=== PATIENT | female | born 1965 | race Caucasian/White ===

== ENCOUNTER 2017-05-07 15:21 | Emergency (ER) | payer OTHER ==
[~2017-05-07] VITALS: Ht 157.5 cm; Wt 81.6 kg
[~2017-05-07 15:21] MED LIST: ASPI81TA44 PO; HYDR453.4 TP; INSU100I17 SQ; LOPE1TAB4 PO; METF500T PO; ONDA8TAB12 PO
[2017-05-07 15:35] VITALS: BP 148/63
--- NOTE | 2017-05-07 18:06 | PHYS DOC ---
Past History Past Medical History: Arthritis, Depression, Diabetes, Fibromyalgia, Hepatitis Past Surgical History: Other Smoking: Cigarettes Alcohol Use: None Drug Use: Other Social History Narrative: FORMER DRUG USER Adult General Chief Complaint Chief Complaint: WOUND CHECK HPI HPI Patient is a 51 year old F who presents for dirty dressing over her PICC line. She states that she has been moving boxes in a dirty garage. She also has swelling in the left arm which is the same arm as the PICC line. She states this was caused by bumping her arm while moving. She has no recollection of specifics around this injury. She states that it appeared suddenly. She denies fever sweats chills or flulike symptoms. She denies any other associated symptoms Review of Systems Review of Systems Constitutional: Denies fever or chills [] Eyes: Denies change in visual acuity, redness, or eye pain [] HENT: Denies nasal congestion or sore throat [] Respiratory: Denies cough or shortness of breath [] Cardiovascular: No additional information not addressed in HPI [] GI: Denies abdominal pain, nausea, vomiting, bloody stools or diarrhea [] : Denies dysuria or hematuria [] Musculoskeletal: Denies back pain or joint pain [] Integument: Negative except history of present illness Neurologic: Denies headache, focal weakness or sensory changes [] Endocrine: Denies polyuria or polydipsia [] Family History Family History Noncontributory Current Medications Current Medications Medications reviewed Allergies Allergies Allergies Coded Allergies Type Severity Reaction Last Updated Verified Penicillins Allergy Intermediate 01/13/16 Yes codeine Allergy Intermediate 02/07/16 Yes amoxicillin Allergy Unknown 05/07/17 Yes Physical Exam Physical Exam Constitutional: Well developed, well nourished, no acute distress, non-toxic appearance. [] HENT: Normocephalic, atraumatic, bilateral external ears normal, oropharynx moist, no oral exudates, nose normal. [] Eyes: PERRLA, EOMI, conjunctiva normal, no discharge. [] Neck: Normal range of motion, no tenderness, supple, no stridor. [] Cardiovascular:Heart rate regular rhythm, no murmur [] Lungs & Thorax: Bilateral breath sounds clear to auscultation [] Abdomen: Bowel sounds normal, soft, no tenderness, no masses, no pulsatile masses. [] Skin: Warm, dry, no erythema, moderate erythema noted over the proximal anterior forearm, area of raised and possible signs of abscess noted. Erythema involves an area approximately 8 cm x 6 cm. Pick dressing moderately dirty Back: No tenderness, no CVA tenderness. [] Extremities: No tenderness, no cyanosis, no clubbing, ROM intact, no edema. [] Neurologic: Alert and oriented X 3, normal motor function, normal sensory function, no focal deficits noted. [] Psychologic: Impulsive Current Patient Data Vital Signs Vital Signs Date Time Temp Pulse Resp B/P (MAP) Pulse Ox O2 Delivery O2 Flow Rate FiO2 05/07/17 15:35 97.0 95 18 98 Room Air Course & Med Decision Making Course & Med Decision Making Pertinent Labs and Imaging studies reviewed. (See chart for details) Hannah left prior to completion of her evaluation. She was advised that there was concern she may have an abscess which may be caused by gangrene or a gas forming organism. She was advised that this type of infection progresses rapidly and may result in or loss of limb. She expressed understanding. Dragon Disclaimer Dragon Disclaimer This chart was dictated in whole or in part using Voice Recognition software in a busy, high-work load, and often noisy Emergency Department environment. It may contain unintended and wholly unrecognized errors or omissions. Departure Departure: Impression: Primary Impression: Left against medical advice Additional Impression: Cellulitis Disposition: 07 AGAINST MEDICAL ADVICE Condition: STABLE Referrals: NON,STAFF (PCP) Problem Qualifiers WILLY KUO MD May 07, 2017 18:06
== END 2017-05-07 16:33 | disposition left against medical advice (07) ==
LOC: ER 15:21
DX: L03.114 Cellulitis of left upper limb (principal); M19.90 Unspecified osteoarthritis, unspecified site; E11.9 Type 2 diabetes mellitus without complications; M79.7 Fibromyalgia; F17.210 Nicotine dependence, cigarettes, uncomplicated; Z88.0 Allergy status to penicillin; Z88.5 Allergy status to narcotic agent; Z88.1 Allergy status to other antibiotic agents
CPT/HCPCS: 99282

== ENCOUNTER 2018-11-01 16:02 | Inpatient (IN) | payer MEDICARE, OTHER ==
[~2018-11-01] VITALS: Ht 154.9 cm; Wt 77.2 kg
[~2018-11-01 16:02] MED LIST changes: -ASPI81TA44 PO; +ASPI81TA59 PO
[2018-11-01] MEDS ORDERED: IV NORMAL SALINE 1,000ML 1,000 ML IV ONE ×2 (16:30→17:45)
[2018-11-01 16:45] LABS: CLARITY,URINE CLOUDY; COLOR,URINE YELLOW
[2018-11-01 16:46] LABS: BACTERIA,URINE MANY /HPF (0-FEW); BILIRUBIN,URINE NEG (NEG); GLUCOSE,URINE >=1000 mg/dL (NEG); NITRITE,URINE POS (NEG); SQUAMOUS EPITHELIAL CELL,UR MANY /LPF; UROBILINOGEN,URINE 0.2 mg/dL (0.2 mg/dL); WBC,URINE >40 /HPF (0-4)
[2018-11-01 16:50] LABS: BARBITURATES NEG (NEG); BENZODIAZEPINES NEG (NEG); CANNABINOIDS NEG (NEG); COCAINE NEG (NEG); METHADONE NEG (NEG); OPIATES NEG (NEG); PHENCYCLIDINE NEG (NEG)
[2018-11-01 16:52] LABS: AMPHETAMINE/METHAMPHETAMINE POS (NEG)
--- NOTE | 2018-11-01 16:53 | PHYS DOC ---
Past History Past Medical History: Arthritis, Depression, Diabetes, Fibromyalgia, Hepatitis Past Surgical History: Other Smoking: Cigarettes Alcohol Use: None Drug Use: Other Adult General Chief Complaint Chief Complaint: abscess HPI HPI 53-year-old female presents with upper left thigh abscesses and new onset of rash. The patient has had intermittent abscesses with drainage on her left upper thigh for at least several days. One is currently draining and has a poor odor. The patient states she has had these before. She has been diagnosed with MRSA in the past. Her other concern is that she developed a rash all over her legs starting today. It also is on her arms and is beginning on her abdomen. The rashes red and purple. There are isolated dots as well as confluent areas closer to the abscess. Review of Systems Review of Systems Constitutional: Denies fever or chills [] Eyes: Denies change in visual acuity, redness, or eye pain [] HENT: Denies nasal congestion or sore throat [] Respiratory: Denies cough or shortness of breath [] Cardiovascular: No additional information not addressed in HPI [] GI: Denies abdominal pain, nausea, vomiting, bloody stools or diarrhea [] : Sita-labial abscesses, one spontaneously draining thick, purulent fluid.[] Musculoskeletal: Denies back pain or joint pain [] Integument: Petechial rash on the bilateral lower extremities with areas of confluence mostly on the left upper thigh near the abscess locations. This rash continues on bilateral arms and to much lesser extent the abdomen.[] Neurologic: Denies headache, focal weakness or sensory changes [] Endocrine: Denies polyuria or polydipsia [] All other systems were reviewed and found to be within normal limits, except as documented in this note. Current Medications Current Medications Current Medications Medications (Trade) Dose Ordered Sig/Tamiko Start Time Stop Time Status Last Admin Dose Admin Sodium Chloride 1,000 ml @ 1,000 mls/hr 1X ONCE 11/01/18 16:30 11/01/18 17:29 Allergies Allergies Allergies Coded Allergies Type Severity Reaction Last Updated Verified Penicillins Allergy Intermediate 01/13/16 Yes codeine Allergy Intermediate 02/07/16 Yes amoxicillin Allergy Unknown 05/07/17 Yes Physical Exam Physical Exam Constitutional: Well developed, well nourished, no acute distress, non-toxic appearance. [] HENT: Normocephalic, atraumatic, bilateral external ears normal, oropharynx moist, no oral exudates, nose normal. [] Eyes: PERRLA, EOMI, conjunctiva normal, no discharge. [] Neck: Normal range of motion, no tenderness, supple, no stridor. [] Cardiovascular:Heart rate regular rhythm, no murmur [] Lungs & Thorax: Bilateral breath sounds clear to auscultation [] Abdomen: Bowel sounds normal, soft, no tenderness, no masses, no pulsatile masses. [] Skin: Warm, dry, no erythema, no rash. [] Back: No tenderness, no CVA tenderness. [] Extremities: No tenderness, no cyanosis, no clubbing, ROM intact, no edema. [] Neurologic: Alert and oriented X 3, normal motor function, normal sensory function, no focal deficits noted. [] Psychologic: Affect normal, judgement normal, mood normal. [] EKG EKG [] Radiology/Procedures Radiology/Procedures [] Course & Med Decision Making Course & Med Decision Making Pertinent Labs and Imaging studies reviewed. (See chart for details) The patient's labs showed significantly elevated blood sugar of over 400, and elevated lactic acid of 2.8. She has a normal white count. Her urine is significant for urinary tract infection. The patient had obvious purulent abscesses likely MRSA. I will treat her with vancomycin. 2 L normal saline have been ordered. An I&D was performed. See note for more details. The patient's urine drug screen was positive for amphetamine/methamphetamine. The patient has petechiae and I am unsure why. Her platelet count is normal. Her hemoglobin is 11. She does not have a fever. Discussed the patient with Dr. Smith and he has accepted the patient for admission and further treatment. [] Dragon Disclaimer Dragon Disclaimer This electronic medical record was generated, in whole or in part, using a voice recognition dictation system. Incision and Drainage Indication: Sita-labial abscess, multiple. Procedure: Verbal consent was obtained from the patient for an incision and drainage of her sita-labial abscesses. The patient was positioned appropriately and the skin over the incision site was cleaned with saline. The fluctuant areas were anesthetized with 1% lidocaine with epinephrine. During the injections there was evidence at all 3 areas were communicating. I did place a 1 /2 cm cut with a #11 blade in the 2 lateral abscesses. There was no immediate drainage from them. I then squeezed these areas to express fluid and purulent fluid came out of the spontaneous hole that was next to her labia. I continued to express a moderate amount of purulent fluid, about 10 mL. I explored the spontaneous hole of the medial most abscess with a sterile Q-tip. There were minimal loculations. The opening was around 1 cm. There is left open for drainage. The patient tolerated the procedure well Complications: None. Departure Departure: Impression: Primary Impression: Abscess or cellulitis of groin Additional Impressions: Methamphetamine use Petechial rash UTI (urinary tract infection) Disposition: 09 ADMITTED INPATIENT Admitting Physician: Srikanth Smith Condition: STABLE Referrals: [facility] (PCP) Problem Qualifiers Additional Impressions: UTI (urinary tract infection) Urinary tract infection type: acute cystitis Hematuria presence: with hematuria Qualified Codes: N30.01 - Acute cystitis with hematuria MAURICIO HUMPHREY DO Nov 01, 2018 16:53
[2018-11-01] MEDS ORDERED: VANCOMYCIN 1.5 GM in IV NORMAL SALINE 500ML 500 ML IV ONE (17:00)
[2018-11-01 17:05] LABS: BASO # 0.1 x10^3/uL (0.0-0.2); BASO % 1 % (0-3); EOS # 0.1 x10^3/uL (0.0-0.7); EOS % 1 % (0-3); HEMATOCRIT 34.4 % (36.0-47.0); HEMOGLOBIN 11.7 g/dL (12.0-15.5); LYMPH # 0.9 x10^3/uL (1.0-4.8); LYMPH % 9 % (24-48); MEAN CORPUSCULAR HEMOGLOBIN 29 pg (25-35); MEAN CORPUSCULAR HGB CONC 34 g/dL (31-37); MEAN CORPUSCULAR VOLUME 85 fL (79-100); MONO # 0.6 x10^3/uL (0.0-1.1); MONO % 6 % (0-9); NEUT # 8.8 x10^3uL (1.8-7.7); NEUT % 85 % (31-73); PLATELET COUNT 286 x10^3/uL (140-400); RED BLOOD COUNT 4.05 x10^6/uL (3.50-5.40); RED CELL DISTRIBUTION WIDTH 13.6 % (11.5-14.5); WHITE BLOOD COUNT 10.4 x10^3/uL (4.0-11.0)
[2018-11-01] MEDS ORDERED: ONDANSETRON PF 4 MG/2 ML VIAL. IV ONE (17:15)
[2018-11-01 17:20] LABS: ALBUMIN 2.4 g/dL (3.4-5.0); ALBUMIN/GLOBULIN RATIO 0.4 (1.0-1.7); CALCIUM 8.7 mg/dL (8.5-10.1); CREATININE 1.1 mg/dL (0.6-1.0); GFR 51.6; POTASSIUM 4.5 mmol/L (3.5-5.1); TOTAL BILIRUBIN 0.4 mg/dL (0.2-1.0); TOTAL PROTEIN 7.9 g/dL (6.4-8.2)
[2018-11-01] MEDS ORDERED: HYDROmorphone PF 1 MG/ML DISP.SYRIN IV ONE (17:30)
[2018-11-01] MEDS ORDERED: INSULIN REGULAR 100 UNIT/ML 3ML VIAL. IV ONE (18:30)
[2018-11-01 20:03] VITALS: BP 126/65
[2018-11-01] MEDS ORDERED: INSULIN GLARGINE 300 UNITS/3 ML INSULN.PEN. SQ SCH (21:00)
[2018-11-01] MEDS ORDERED: DEXTROSE 50% 25 GM / 50ML DISP.SYRIN. IV PRN (21:00)
[2018-11-01] MEDS ORDERED: ONDANSETRON ODT 4 MG TAB.RAPDIS PO PRN (21:00)
[2018-11-01] MEDS ORDERED: ACETAMINOPHEN 325 MG TABLET PO PRN (21:00)
[2018-11-01] MEDS ORDERED: INSULIN GLARGINE 300 UNITS/3 ML INSULN.PEN. SQ ONE (21:30)
[2018-11-01] MEDS ORDERED: INSULIN LISPRO 300 UNITS/3 ML INSULN.PEN. SQ ONE (21:36)
[2018-11-01] MEDS: VANCOMYCIN PER PHARMACY MC PRN ×2 (21:43→21:51)
[2018-11-01] MEDS: MEROPENEM 1 GM in IV NORMAL SALINE 100ML 100 ML IV SCH (21:51)
[2018-11-01 23:27] VITALS: BP 131/63
[2018-11-02 05:32] VITALS: BP 128/76
[2018-11-02] MEDS: VANCOMYCIN 1.25 GM in IV NORMAL SALINE 250ML 250 ML IV SCH ×2 (05:40→17:25)
[2018-11-02] MEDS: MEROPENEM 1 GM in IV NORMAL SALINE 100ML 100 ML IV SCH ×2 (05:41→14:41)
[2018-11-02 06:50] LABS: BASO % 0 % (0-3); EOS # 0.1 x10^3/uL (0.0-0.7); EOS % 2 % (0-3); HEMATOCRIT 31.5 % (36.0-47.0); HEMOGLOBIN 10.9 g/dL (12.0-15.5); LYMPH % 12 % (24-48); MEAN CORPUSCULAR HEMOGLOBIN 29 pg (25-35); MEAN CORPUSCULAR HGB CONC 35 g/dL (31-37); MEAN CORPUSCULAR VOLUME 84 fL (79-100); MONO # 0.5 x10^3/uL (0.0-1.1); MONO % 6 % (0-9); NEUT # 6.8 x10^3uL (1.8-7.7); NEUT % 80 % (31-73); PLATELET COUNT 272 x10^3/uL (140-400); RED BLOOD COUNT 3.76 x10^6/uL (3.50-5.40); RED CELL DISTRIBUTION WIDTH 13.8 % (11.5-14.5); WHITE BLOOD COUNT 8.5 x10^3/uL (4.0-11.0)
[2018-11-02 06:59] LABS: GFR 57.6; POTASSIUM 4.1 mmol/L (3.5-5.1)
[2018-11-02] MEDS: INSULIN LISPRO 300 UNITS/3 ML INSULN.PEN. SQ SCH ×3 (09:04→17:26)
[2018-11-02 10:48] VITALS: BP 129/71
--- NOTE | 2018-11-02 13:53 | DS ---
DATE OF DISCHARGE: HOSPITAL COURSE: The patient was admitted yesterday with multiple left labial and left groin abscesses. Apparently, one of them has opened spontaneously and was draining foul smelling drainage. Swabs were sent for culture and sensitivity; however, when I examined her today, she has multiple indurated areas involving her left groin area that will probably require surgical incision and drainage and therefore, a decision was made to transfer her to [facility] to consult the surgical team, Infectious Disease and also junior engineer. She has red-purplish rash, it is confluent in some areas, especially on her medial aspect of left groin area. Some of them looked like a target lesion. Surprisingly, her platelet counts are normal at 172. Her kidney functions are also normal. PHYSICAL EXAMINATION: GENERAL: When I saw her this afternoon, she looked well and was clearly in no apparent respiratory distress, pale, but no jaundice, cyanosis or thyromegaly. No jugular venous distension. No lower limb edema. VITAL SIGNS: Her heart rate was 94, blood pressure 129/71, temperature was 98.9, respiratory rate was 18 and oxygen saturation was 98% on room air. HEAD, EYES, EARS, NOSE AND THROAT: Showed normocephalic, atraumatic. NECK: Supple. HEART: Showed normal first and second heart sounds. No gallop, rub or murmur. CHEST: Clear to auscultation. No crepitation or rhonchi. ABDOMEN: Distended, soft, nontender. NEUROLOGIC: She is awake, alert, responding appropriately. All cranial nerves intact. EXTREMITIES: She moves extremities without difficulty. She ambulates without assistance or assistive devices. Examination of the skin showed that she has a red-purplish macular rash involving the both upper extremities and both lower extremities to a lesser extent in the abdomen and back. It is more confluent on the medial aspect of the left thigh. She has also multiple indurated areas, probably abscesses on the upper inner aspect of left thigh and the left labia majora. LABORATORY DATA: Her lab work this morning showed a serum sodium 135, potassium 4.1, chloride 102, bicarbonate 25, anion gap of 8, BUN 15, creatinine 1, estimated GFR was 58 mL per minute. Her glucose was 194 and calcium was 8. Her white cell count was 8500, hemoglobin 11, hematocrit 31, MCV 84 and platelet count of 272,000. DISCHARGE MEDICATIONS: The patient will be transferred to [facility] to continue on vancomycin 1.25 g IV every 12 hours, meropenem 1 g IV every 8 hours, ondansetron 4 mg every 8 hours, Tylenol 650 mg every 6 hours, fentanyl citrate 50 mcg IV every 4 hours and Lantus insulin 10 units at bedtime and insulin sliding scale before meals. FINAL DISCHARGE DIAGNOSES: 1. Multiple abscesses and cellulitis involving the perilabial area. 2. Macular rash that is red-purplish, target area is confluent in the medial aspect of the left thigh, urinary tract infection, methamphetamine abuse, type 2 diabetes, and bronchial asthma. ANGELA MIRAMONTES MD DR: MATT/ventura JOB#: [id number] / [id number]
[2018-11-02 16:18] VITALS: BP 153/73
--- NOTE | 2018-11-02 17:44 | HP ---
ADMIT DATE: 11/01/2018 HISTORY OF PRESENT ILLNESS: The patient is a 53-year-old female patient, who came to the Emergency Room of [facility] complaining of right thigh abscesses with new onset of rash. The patient has had intermittent abscesses with drainage on her left upper thigh for at least several days and when she arrived to the Emergency Room she had one of them draining with foul odor. She stated that she has these before. She has been diagnosed with MRSA in the past. Her other concern is that she developed the rash all over in her legs starting on the day of admission. It also involved her arms, to a lesser extent to her abdomen and back. It is red and purple and confluent in some areas, closer to the abscess, although it is not itchy. The patient said that she has only been using mouthwash and has not been on any medication whether by prescription or [id number]. She was basically admitted on vancomycin as well as meropenem together with her insulin and pain medication. PAST MEDICAL HISTORY: Significant for type 2 diabetes mellitus that is insulin requiring. She has a previous episode of acute hepatitis B, treated. She is also known to have bronchial asthma, osteoarthritis, fibromyalgia and peripheral neuropathy. PAST SURGICAL HISTORY: Significant for pilonidal cyst resection. ALLERGIES: She is ALLERGIC TO PENICILLIN, AMOXICILLIN and CODEINE. MEDICATIONS: She is currently on no medication. FAMILY HISTORY: She has one brother who is younger and seemingly healthy. Her father at the age of 39 because of infection and mother at age of 66 because of lung cancer. SOCIAL HISTORY: She is single, lives with a friend. She smokes only about 4 or 5 cigarettes a day. She does not drink alcohol or use any recreational drugs. She is on disability. REVIEW OF SYSTEMS: The patient denied any blurring of vision, cataract, glaucoma or macular degeneration. Denied any earache, tinnitus or sensorineural deafness. Denied any nosebleeds, stuffy nose or postnasal drip. Denied any sore throat, sore tongue, toothache, hoarseness of voice or difficulty swallowing. Denied any nausea, vomiting, diarrhea or constipation. Denied any hematemesis, melena or hematochezia. Denied any dysuria, frequency or hematuria. She denied any chest pain, shortness of breath, orthopnea, paroxysmal nocturnal dyspnea. Denied any cough, phlegm or hemoptysis. Denied any chills, rigors or fever. PHYSICAL EXAMINATION: GENERAL: On arrival to the Emergency Room, she looked slightly pale, but no jaundice, cyanosis, or thyromegaly. No jugular venous distension. No lower limb edema. VITAL SIGNS: Her heart rate was 103, blood pressure was 132/66, temperature was 98.2, respiratory rate was 18 and oxygen saturation was 100% on room air. HEENT: Examination of the head, eyes, ears, nose and throat showed normocephalic, atraumatic. NECK: Supple. HEART: Showed normal first and second sounds. No gallop, rub or murmur. CHEST: Clear to auscultation. No crepitation or rhonchi. ABDOMEN: Slightly distended, soft, nontender. NEUROLOGIC: She was awake, alert, responding appropriately. All cranial nerves are intact. EXTREMITIES: She moves extremities without difficulty. She ambulates without assistance or assistive devices. SKIN: Showed that she has macular rash that is red, purplish in color involving both upper and lower extremities, more confluent on the inner aspect of the left thigh. She has also 3 indurated areas with fluctuation consistent with abscesses. Apparently, one of them has opened spontaneously. LABORATORY DATA: Her lab work on admission showed a white cell count of 10,400; hemoglobin 11.7; hematocrit 34; MCV 85 and platelet count 286,000 with normal manual differential. Her chemistry showed serum sodium 127, potassium 4.5, chloride 92, bicarbonate 27, anion gap of 8, BUN 14, creatinine 1.1, estimated GFR was 51 mL per minute. Her glucose was 494 and her calcium was 8.7. Total bilirubin, AST, ALT, alkaline phosphatase were normal. Total protein was 7.9, albumin was 2.4. Urinalysis essentially showed that the urine was yellow, cloudy with a pH of 5, specific gravity of 1.010. There was large amount of protein, large amount of glucose. The urine was negative for ketones, there is a moderate amount of blood, positive for nitrite, trace amount of leukocyte esterase, 3-5 rbcs, more than 40 wbcs, and many bacteria. Her toxic screen was positive for amphetamine, methamphetamine. ASSESSMENT AND PLAN: The patient was admitted with multiple abscesses in the left groin area, methamphetamine abuse, petechial rash and possible urinary tract infection. She was started on IV antibiotic in the form of vancomycin and meropenem as well as continued on her insulin, both Lantus and Humalog insulin together with the IV fentanyl 50 mcg IV every 4 hours. Her blood and swabs from the abscess was sent for culture and sensitivity, the results of which are still pending. ANGELA MIRAMONTES MD DR: MATT/ventura JOB#: [id number] / [id number]
[2018-11-02 19:12] VITALS: BP 139/72
== END 2018-11-02 19:45 | disposition short-term general hospital (02) | DRG 689 ==
LOC: ER 16:02 → 1 SOUTH 18:59
PROVIDERS: ADMIT Internal Medicine; ATTEND Internal Medicine
DX: N30.01 Acute cystitis with hematuria (principal); E43 Unspecified severe protein-calorie malnutrition; L03.314 Cellulitis of groin; L02.415 Cutaneous abscess of right lower limb; L02.416 Cutaneous abscess of left lower limb; L02.214 Cutaneous abscess of groin; E11.9 Type 2 diabetes mellitus without complications; F15.10 Other stimulant abuse, uncomplicated; F17.210 Nicotine dependence, cigarettes, uncomplicated; F32.9 Major depressive disorder, single episode, unspecified; M19.90 Unspecified osteoarthritis, unspecified site; J45.909 Unspecified asthma, uncomplicated; M79.7 Fibromyalgia; Z79.4 Long term (current) use of insulin; Z80.1 Family history of malignant neoplasm of trachea, bronchus and lung; Z86.14 Personal history of Methicillin resistant Staphylococcus aureus infection; Z88.0 Allergy status to penicillin; Z88.8 Allergy status to other drugs, medicaments and biological substances; Z68.32 Body mass index [BMI] 32.0-32.9, adult
CPT/HCPCS: 36415; 56405; 80048; 80053; 80307; 81001; 82947; 83605; 84145; 85025; 87040; 87070; 87086; 87186; 96365; 96375; 99406; J1170; J1815; J2185; J2405; J3010; J3370; J7040; J7050; 99285-25; J7030

== ENCOUNTER 2020-02-25 16:47 | Emergency (ER) | payer OTHER ==
[~2020-02-25] VITALS: Ht 154.9 cm; Wt 70.9 kg
[2020-02-25] MEDS ORDERED: SULF1TAB24 PO (17:37)
--- NOTE | 2020-02-25 17:38 | PHYS DOC ---
Past History Past Medical History: Arthritis, Depression, Diabetes, Fibromyalgia, Hepatitis, MRSA Past Surgical History: Other Smoking: Cigarettes Alcohol Use: None Drug Use: Methamphetamine, Other General Adult EDM: Chief Complaint: FINGER INJURY HPI: HPI: 54-year-old female presents with right middle finger cellulitis and abscess. Patient states that this started 4 days ago with what she thought was a paper cut. It is gotten red and hot and swollen over the last 4 days. He developed a large pus pocket on the palmar side yesterday. It started spontaneously draining thick purulent material today. She denies fever chills. She has not had an abscess before. She denies any other injuries or wounds. Review of Systems: Review of Systems: Constitutional: Denies fever or chills Eyes: Denies change in visual acuity HENT: Denies nasal congestion or sore throat Respiratory: Denies cough or shortness of breath Cardiovascular: Denies chest pain or edema GI: Denies abdominal pain, nausea, vomiting, bloody stools or diarrhea : Denies dysuria Musculoskeletal: Denies back pain or joint pain Integument: Cellulitis right middle finger Neurologic: Denies headache, focal weakness or sensory changes Endocrine: Denies polyuria or polydipsia Lymphatic: Denies swollen glands Psychiatric: Denies depression or anxiety Heart Score: Risk Factors: Risk Factors: DM, Current or recent (<one month) smoker, HTN, HLP, family history of CAD, obesity. Risk Scores: Score 0 - 3: 2.5% MACE over next 6 weeks - Discharge Home Score 4 - 6: 20.3% MACE over next 6 weeks - Admit for Clinical Observation Score 7 - 10: 72.7% MACE over next 6 weeks - Early Invasive Strategies Allergies: Allergies: Allergies Coded Allergies Type Severity Reaction Last Updated Verified Penicillins Allergy Intermediate 02/25/20 Yes codeine Allergy Intermediate 02/25/20 Yes amoxicillin Allergy Unknown 02/25/20 Yes niacin Allergy Unknown Hives 02/25/20 Yes Uncoded Allergies Type Severity Reaction Last Updated Verified lava soap Allergy Unknown 02/25/20 Physical Exam: PE: Constitutional: Well developed, well nourished, no acute distress, non-toxic appearance. [] HENT: Normocephalic, atraumatic, bilateral external ears normal, oropharynx moist, no oral exudates, nose normal. [] Eyes: PERRLA, EOMI, conjunctiva normal, no discharge. [] Neck: Normal range of motion, no tenderness, supple, no stridor. [] Cardiovascular:Heart rate regular rhythm, no murmur [] Lungs & Thorax: Bilateral breath sounds clear to auscultation [] Abdomen: Bowel sounds normal, soft, no tenderness, no masses, no pulsatile masses. [] Skin: 3 cm of cellulitis of the right middle finger with central, spontaneously draining abscess on the palmar aspect. [] Back: No tenderness, no CVA tenderness. [] Extremities: No tenderness, no cyanosis, no clubbing, ROM intact, no edema. [] Neurologic: Alert and oriented X 3, normal motor function, normal sensory function, no focal deficits noted. [] Psychologic: Affect normal, judgement normal, mood normal. [] EKG: EKG: [] Radiology/Procedures: Radiology/Procedures: [] Course & Med Decision Making: Course & Med Decision Making Pertinent Labs and Imaging studies reviewed. (See chart for details) Since the patient's wound is spontaneously draining, an incision and drainage is not necessary. I did send a wound culture. I will place her on Bactrim for 7 days. We will give the first dose in the ED. She is stable for discharge at this time. I have given her warning signs to look for. She may need IV antibiotics. [] Lonon Disclaimer: aZhraa Disclaimer: This electronic medical record was generated, in whole or in part, using a voice recognition dictation system. Departure Departure: Impression: Primary Impression: Cellulitis and abscess of finger, unspecified Disposition: 01 HOME/RESIDENCE PRIOR TO ADM Condition: STABLE Referrals: [facility] (PCP) Patient Instructions: Abscess, [id number], Cellulitis, [id number] Scripts Sulfamethoxazole/Trimethoprim (BACTRIM DS TABLET) 1 Each Tablet 1 TAB PO BID for infection for 7 Days, #14 TAB 0 Refills Prov: MAURICIO HUMPHREY DO 02/25/20 Justification of Admission: Justification of Admission: Justification of Admission Dx: N/A MAURICIO HUMPHREY DO Feb 25, 2020 17:38
[2020-02-25] MEDS ORDERED: SMZ/TMP 800/160MG TABLET. PO ONE (18:00)
[2020-02-25 18:15] VITALS: BP 140/59
== END 2020-02-25 18:13 | disposition home or self-care (01) ==
LOC: ER 16:47
DX: L03.011 Cellulitis of right finger (principal); L02.511 Cutaneous abscess of right hand; M19.90 Unspecified osteoarthritis, unspecified site; E11.9 Type 2 diabetes mellitus without complications; M79.7 Fibromyalgia; F17.210 Nicotine dependence, cigarettes, uncomplicated; Z86.14 Personal history of Methicillin resistant Staphylococcus aureus infection; Z88.0 Allergy status to penicillin; Z88.5 Allergy status to narcotic agent; Z88.1 Allergy status to other antibiotic agents
CPT/HCPCS: 87070; 99283